=== PATIENT | male | born 1935 | race African-American/Black ===

== ENCOUNTER 2018-03-17 18:12 | Inpatient (IN) ==
[2018-04-17] MEDS ORDERED: Potassium Phosphate 500 MG Soluble Tablet PO PRN ×2 (00:01)
[2018-04-17] MEDS ORDERED: Dextrose 50% in Water 50 ML Vial IV.PUSH PRN (00:01)
[2018-04-17] MEDS ORDERED: Acetaminophen 325 MG Tablet PO PRN (00:01)
[2018-04-17] MEDS ORDERED: Magnesium Oxide 400 MG Tablet PO PRN (00:01)
[2018-04-17] MEDS ORDERED: Potassium Chlor 20 mEq Premix 20 MEQ/100 ML PIGGYBACK IV.SIG PRN ×2 (00:01)
[2018-04-17] MEDS ORDERED: Potassium Phosphate Inj 30 MMOL in Sodium Chlor 0.9% Inj 250 ML IV.SIG PRN (00:01)
[2018-04-17] MEDS ORDERED: Naloxone Inj 0.4 MG/ML Vial IV.PUSH PRN (00:01)
[2018-04-17] MEDS ORDERED: Atropine Inj 1 MG/10 ML Syringe IV.PUSH PRN (00:01)
[2018-04-17] MEDS ORDERED: Morphine Sulfate Inj 2 MG/ML Vial IV.PUSH PRN (00:01)
[2018-04-17] MEDS ORDERED: Bisacodyl 10 MG Supp RECTAL PRN (00:01)
[2018-04-17] MEDS ORDERED: Magnesium Sulfate Inj 2 GM in Sodium Chlor 0.9% Inj 96 ML IV.SIG PRN (00:01)
[2018-04-17] MEDS ORDERED: Magnesium Sulfate Inj 4 GM in Sodium Chlor 0.9% Inj 92 ML IV.SIG PRN (00:01)
[2018-04-17] MEDS ORDERED: Potassium Chloride 25 MEQ Effervescent Tablet PO PRN (00:01)
[2018-04-17] MEDS ORDERED: Potassium Chlor 40 mEq Premix 40 MEQ/100 ML PIGGYBACK IV.SIG PRN ×2 (00:01)
[2018-04-17] MEDS ORDERED: Haloperidol Inj 5 MG/ML Ampul IV.PUSH PRN (00:01)
[2018-04-17] MEDS ORDERED: Sodium Phosphate Inj 30 MMOL in Sodium Chlor 0.9% Inj 250 ML IV.SIG PRN (00:01)
[2018-04-17] MEDS ORDERED: Glycopyrrolate 0.2 MG/ML Vial IV.PUSH SCH (06:00)
[2018-04-17] MEDS: Insulin NovoLOG Aspart Correctional Sugar Inj SQ SCH ×3 (06:41→17:58)
[2018-04-17] MEDS: Artificial Tears Opth Drops 15 ML Bottle EACH EYE SCH ×2 (06:47→13:28)
[2018-04-17] MEDS: Folic Acid 1 MG Tablet PO SCH (10:11)
[2018-04-17] MEDS: Insulin Detemir Inj 1,000 UNIT/10 ML Vial SQ SCH ×2 (10:12→22:01)
[2018-04-17] MEDS: Polyethylene Glycol 3350 17 GM Packet NG/OG SCH ×2 (10:13→20:50)
[2018-04-17] MEDS: Senna/Docusate Sodium 8.6/50 MG Tablet PO SCH ×2 (10:15→20:57)
[2018-04-17] MEDS: Chlorhexidine Gluconate 0.12% Liq 15 ML UDC SWISH-SPIT SCH ×2 (10:16→20:55)
[2018-04-17] MEDS: Heparin - SQ 10,000 UNITS/ML Vial SQ SCH ×3 (13:22→22:04)
--- NOTE | 2018-04-17 13:44 | P.PNCC ---
Subjective Subjective Remarks/Hospital Course: Remarks/Hospital Course 82-year-old male was reportedly found down on the side of the road with initial GCS 7. Per chart review he usually takes a walk every morning. He was brought to the emergency room as a trauma alert. No seizure activity reported. He was reportedly mumbling and difficult to understand on initial evaluation in the emergency room. He was noted to have no voluntary movement in the lower extremities. Initial systolic blood pressure in the 90-100 range. The patient presents with quadriplegia, absence motor function below C6 level. 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 The patient was taken urgently to the operating room for surgical decompression cervical cord and fusion by Dr. Hood. He has returned to SICU postprocedure sedated and intubated 03/19: Afebrile. Positive gag and cough with positive corneal reflex. NG tube not in place secondary to edema?. Currently on phenylephrine drip to maintain mean arterial pressure greater than 85. Change to norepinephrine due to cervical spinal cord injury. 03/20: Currently on norepinephrine drip at 2 mcg/min to maintain mean arterial pressure greater than 85. Sedated on propofol drip at 30 mg/kg/min. Tolerating tube feeding. Will get CT brain today due to right pupil larger than left but this was similar to yesterday. No bowel movement. 03/21: Placed on Tiarra hugger yesterday secondary to hypothermia. Currently normothermic. Tolerating tube feeds. Will initiate CPAP trials today 2 hours. Nods head and follows simple commands with upper extremities. Weak cough. Withdraws bilateral lower extremities. 03/22: failing cpap trials. remains on low-dose norepinephrine to maintain adequate cervical spinal perfusion pressure. 03/23: Afebrile. Low tidal volumes on PSV trials. Tolerating tube feeding by 1.5 at goal rate recommended by nutrition 60 cc an hour. Positive BM. 03/24: still failing PSV trials with low tidal volume. plan for trach tomorrow ( POD 7). continues on low-dose norepinephrine to maintain adequate spinal perfusion. 03/25: secretions are still an issue: today they appear purulent and much more copious than yesterday. also now spiking fevers. wbc increased significantly. high concern for infection, pulmonary source. plan for trach today. 03/26: s/p trach yesterday. both sputum and urine growing GNR. wbc still uptrending. 03/27: urine growing proteus and klebsiella. sputum still awaiting speciation. t- piece trials starting today. needs aggressive mobilization. 03/28: Afebrile currently. Coarse crackles are appreciated bilateral with a stable appearing chest x-ray. Off norepinephrine drip. Nods head appropriately to questions. Moving bilateral upper extremities.. Denies chest pain currently. 03/29: Afebrile. Coarse rhonchorous breath sounds bilaterally. Off all vasopressors. I did not take the course. Decreased tidal volumes noted current ventilator mode. Will recheck sputum today. 03/30: Continue to promote SBTs but volumes remain low. 03/31: Today he is tolerating 12/5 spontaneous breathing trials. Remains alert. 04/01: Remains ventilator dependent. Glucose intolerance will require twice daily Levemir dosing. Convert tube feedings to Glucerna. 04/02: Remains ventilator dependent and requiring elevated pressure support. Glucose intolerance persists will increase Levemir again and continue with Glucerna. 04/03: Remains ventilator dependent and not tolerating spontaneous breathing trials. Better control of hyperglycemia now with increased Levemir dosing twice daily. Will require 3-4 weeks for ventilator weaning. [facility] 04/04: episode of bradycardia yesterday associated with hypoxia: appeared to be junctional with rate of 30s. this morning, had additional episode of junctional bradycardia, rate in the 30s with associated hypotension, responding to atropine. MRI brain and c-spine ordered. afebrile. sputum growing citrobacter. 04/05: MRI c-spine demonstrates new increased cord edema at C5/6. some concern over increased signal within the posterior disk at C4/5 and c5/6 which could be concerning for discitis, or post-op changes. Also ligamentum flavum hypertrophy at that level causing significant canal stenosis. Almost certainly the cord edema is causing the neurogenic shock requiring intermittent atropine. Have discussed with neurosurgery, and awaiting final plan for operative or non- operative recommendations. Certainly additional cervical spine operations in this 82year old patient with chronic respiratory failure would be very high risk for poor outcomes. 04/06: additional episode of bradycardia requiring atropine today. also, more hypoxemia requiring suction lavage. afebrile. wbc normal. failing cpap trials: very frail, deconditioned. plan for posterior decompression early next week, then needs LTAC level care. 04/07: Remains on mechanical ventilation. 04/08: Remains on mechanical ventilation via tracheostomy. Daily CPAP trials. 04/09: Remains on mechanical ventilation via tracheostomy. Daily CPAP trials ongoing. 04/10: Afebrile. Continues to have copious thick secretions suctioned from tracheostomy site. Tolerating tube feeding at goal. Positive BM. Arousable and follows commands on the ventilator with upper extremities 04/11: Resting comfortably in bed in no acute distress. Switch to PC/AC ventilation due to inconsistent/low tidal volumes on PRVC/AC. Neurological exam unchanged. Tube feeds at goal. No bowel movement yesterday. Subjective 04/12: Opens eyes follows commands on upper extremity grossly no finding movements of the hands. Bilateral wheezing heard. Chest x-ray shows left lower lobe consolidation. Copious secretions. Check sputum culture repeat, start inhaled budesonide and give 1 dose of IV Solu-Medrol 50 mg 04/13: Somnolent but following some commands with UE, Sputum cx with GNR. Will attempt CPAP today. OR tomorrow, 04/14/18 for posterior cervical decompression. 04/14: Patient more awake today for his commands with upper extremities. Sputum culture growing Citrobacter and GNR. Plan for OR today for posterior cervical decompression. Became bradycardic hypoxic on CPAP trials yesterday 04/15: Went to OR 04/14/18 for total C5 laminectomy and partial C4 and C6 laminectomies. All for sedation but slightly more lethargic today. Not following commands on upper extremities but opens eyes and tracks 04/16: Patient is breathing more comfortably today tolerating CPAP. Follows commands still on the upper extremities. No episodes of bradycardia reported. KUB shows questionable ileus. Tolerating tube feeds, having bowel movements. 04/17 patient is awake feeling segments in the upper extremities. Abdomen is distended, but patient is tolerating tube feeds and having bowel movements. Will repeat KUB today Objective Vital Signs / I&O: Vital Signs 04/17/18 04:22 04/17/18 04:26 04/17/18 09:09 Pulse Rate 69 72 Respiratory Rate 16 17 25 H Pulse Oximetry 100 100 04/17/18 11:48 Pulse Rate 72 Respiratory Rate 25 H Pulse Oximetry Intake & Output 0604/17/18 04/17/18 18:59 06:59 18:59 Intake Total 1016 / 1016 Output Total 1000 / 1000 Balance Intake: Tube Feeding 556 / 556 Water Bolus Amount 460 / 460 Output: Urine 1000 / 1000 Other: Date of Last Bowel Movement 04/16/18 04/17/18 Result Diagrams: 04/16/18 04:40 04/17/18 05:00 Other Results: Objective Remarks GENERAL: 82 yo AAM male, lying in bed eyes open, no distress SKIN: Warm and dry. No rash and well-perfused HEAD: Normocephalic. EYES: No scleral icterus. No injection or drainage. Pupils right 3 mm, left 2 mm. Reactive. NECK: Supple, tracheostomy with no signs of bleeding. Remains of cervical collar. CARDIOVASCULAR: RRR. S1, S2. No S4. No JVD. RESPIRATORY: Breath sounds equal bilaterally. Bilateral wheezes and coarse rhonchi. GASTROINTESTINAL: Abdomen soft, non-tender, nondistended. Hypoactive bowel sounds MUSCULOSKELETAL: No significant peripheral edema, warm and well-perfused limbs. Sacral DU NEURO EXAM: Eyes are spontaneously open. following commands in UE. spontaneously move bilateral upper extremities, has gross movements, no fine movements of the hand. Strength 3/5 upper extremities with right greater than left. strength 0/5 in lower extremities. Objective Remarks: GENERAL: 82 yo AAM male, lying in bed eyes open, no distress SKIN: Warm and dry. No rash and well-perfused HEAD: Normocephalic. EYES: No scleral icterus. No injection or drainage. Pupils right 3 mm, left 2 mm. Reactive. NECK: Supple, tracheostomy with no signs of bleeding. Remains of cervical collar. CARDIOVASCULAR: RRR. S1, S2. No S4. No JVD. RESPIRATORY: Breath sounds equal bilaterally. Bilateral wheezes and coarse rhonchi. GASTROINTESTINAL: Abdomen soft, non-tender, nondistended. Hypoactive bowel sounds MUSCULOSKELETAL: No significant peripheral edema, warm and well-perfused limbs. Sacral DU NEURO EXAM: Pupils are equal eyes are spontaneously open. following commands in UE. spontaneously move bilateral upper extremities, has gross movements, no fine movements of the hand. Strength 3/5 upper extremities with right greater than left. strength 0/5 in lower extremities. Upward Babinski. Assessment and Plan - Assessment and Plan Plan: A/P Assessment and Plan Neuro/Psych: Quadriplegia, C5-C7 complete Cervical spinal stenosis Contusion of cervical cord Dementia disorder NOS EtOH s/p C4-5 and C5-6 anterior cervical discectomy, interbody fusion, allograft bone , partial C5 corpectomy, C4-6 anterior instrumentation 03/18/18 s/p total C5 laminectomy and partial C4 and C6 laminectomies. 04/14/18 Neurosurgery/Dr. Hood. Acetaminophen 650 mg by tube every 6 hours as needed fever Morphine sulfate as needed for pain management Continue baclofen 10 mg every 8 hours Donepezil 5 mg p.o. daily for dementia Vitamin bag daily 3 days thiamine, folate has been completed. thiamine 100 mg daily multivitamin daily and folic acid 1 mg daily by tube Monitor for DTs. Haloperidol 2.5 mg every 4 hours as needed agitation MRI brain 04/04 revealed mild microvascular ischemic type changes PT/OT CV: Essential hypertension Episodic bradycardia Atropine PRN use prior to suctioning Became bradycardic 04/13 after becoming hypoxemic on CPAP. No bradycardia reported last 24-48 hours Holding amlodipine 10 mg daily lisinopril 2.5 mg p.o. daily while maintain blood pressure goals as above and resume as clinically indicated Resp: Acute hypoxic and hypercarbic respiratory failure- now chronic. PC/AC, Daily SBT, with TP as tolerated. Need long-term vent weaning Has been treated with larger tidal volumes- 10-12cc/kilogram ideal body weight 67 kg. Ventilator bundle Specialist respiratory management with cervical spine injury with decreased lung expansion, impaired cough due to weakness of expiratory muscles, impairment of elastic recoil of diaphragms, increased secretion production due to unopposed parasympathetic stimulation stimulation and decreased surfactant production. Albuterol/ipratropium aerosols every 6 hours with albuterol aerosols every 2 hours as needed dyspnea Continue trials for spontaneous breathing- failing mostly, mostly for tachypnea and secretion management. Status post percutaneous tracheostomy 03/[address] Grey Sputum culture Citrobacter, Klebsiella, Continue budesonide GI: Hypoalbuminemia Hypernatremia Tube feeds goal 60 cc an hour per nutrition's recommendation Probable mild ileus on KUB, but clinically patient has no vomiting, tolerating tube feeds, having bowel movements Reglan 5 mg IV every 8 hours. Lansoprazole for GI prophylaxis Docusate sodium/senna 1 tablet twice daily for bowel regimen. Polyethylene glycol 17 g twice daily, lactulose 30 cc twice daily s/p PEG tube 04/05. Dr. Tom Repeat KUB today Endo: Sliding scale insulin with Accu-Cheks to maintain euglycemia/low regimen NovoLog every 6 hours Insulin detemir 16 units twice daily. No sliding scale insulin past 24 hours Renal: Mild rhabdomyolysis -resolved Monitor CPK/LFTs are downward straight cath i/o q6h for retention. Heme: Leukocytosis Normocytic anemia Monitor CBC daily. Follow trend ID: Klebsiella UTI Proteus UTI Haemophilus influenza/Citrobacter Koseri sputum HCAP with Citrobacter/Klebsiella Continue Rocephin 04/12: Citrobacter/Klebsiella in sputum culture 04/08 -sputum -Klebsiella pneumonia/Citrobacter koseri 03/29 -sputum -Klebsiella pneumonia/Citrobacter 03/25 -urine -Klebsiella pneumonia/Proteus mirabilis 03/25 -sputum -Citrobacter koseri and Haemophilus influenza positive 03/25 -blood cultures 2 -no growth MSK: Sacrum DU PT evaluate and treat Wound care c/s FEN: Replace electrolytes per ICU electrolyte protocol Access - piv Prophylaxis -GI -lansoprazole -DVT -SCD/pharmacological prophylaxis will defer to Dr. Hood. Readdress after posterior decompression Level 3 Transfer to LTAC after cleared by neurosurgery
--- NOTE | 2018-04-17 14:18 | XR ---
EXAM DATE: 04/17/2018 2:14 PM EDT AGE/SEX: 82 years / Male INDICATIONS: Distention, concern for ileus. CLINICAL DATA: This is the patient's subsequent encounter. Patient reports that signs and symptoms h ave been present for 3 days and indicates a pain score of Nonresponsive. MEDICAL/SURGICAL HISTORY: Non-responsive. Non-responsive. COMPARISON: [facility] [place] ABDOMEN KUB ONLY, 04/15/2018. . FINDINGS: Gastrostomy is present. There is mild diffuse gaseous distention of bowel similar to prior. CONCLUSION: Nonspecific gaseous distention of bowel Electronically signed by: Toni Gomez MD 04/17/2018 2:17 PM EDT
--- NOTE | 2018-04-17 14:47 | P.PNNS ---
Subjective Interval history: No new problems reported. Commercial Sheet Metal Foreman notes reviewed. Physical Exam Vital signs: Vital Signs 04/17/18 04:22 04/17/18 04:26 04/17/18 09:09 Pulse Rate 69 72 Respiratory Rate 16 17 25 H Pulse Oximetry 100 100 04/17/18 11:48 Pulse Rate 72 Respiratory Rate 25 H Pulse Oximetry Intake & Output 04/16/18 04/17/18 04/17/18 18:59 06:59 18:59 Intake Total 1016 / 1016 Output Total 1000 / 1000 Balance Intake: Tube Feeding 556 / 556 Water Bolus Amount 460 / 460 Output: Urine 1000 / 1000 Other: Date of Last Bowel Movement 04/16/18 04/17/18 Narrative: GENERAL: Remains mildly lethargic, briefly opens eyes to voice. No interaction. Trached and on CPAP/PSV. No apparent distress. No sedation. HEENT: Normocephalic, atraumatic. NECK: Tracheostomy midline. No JVD. Anterior neck surgical incision well- approximated w/o any drainage, erythema or streaking noted. The posterior neck surgical incision is dry & intact. TTP (facial grimacing) along the midline cervical spine & surgical incision. MUSCULOSKELETAL: No response w/any extremity to any stimulation. BUE w/extreme contractures, unable to due passive ROM. No evident clubbing or deformity. NEUROLOGICAL: Mildly lethargic, briefly opens eyes to voice. Does not interact. Nonverbal, trached on vent. Did not follow any commands. No response with any extremity to local or noxious stimulation. - Urinary Catheter Management Condom Cath placed during this visit: no Assessment and Plan - Plan Impression: 1. Status post 03/18/2018: C4-5 and C5-6 ACDF with partial C5 corpectomy 04/14/2018: T5 total and partial C4 and C6 laminectomies Persistent quadriplegia-unchanged postoperative. 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 Plan: Primary & critical care management per Commercial Sheet Metal Foreman. Neuro checks. Stat CT for any decline in mental status. Continue therapy Respiratory treatments Cervical collar He will need inpatient rehabilitation
[2018-04-18] MEDS: Artificial Tears Opth Drops 15 ML Bottle EACH EYE SCH ×4 (00:36→21:28)
[2018-04-18] MEDS: Insulin NovoLOG Aspart Correctional Sugar Inj SQ SCH ×3 (00:37→21:28)
[2018-04-18 05:02] LABS: Hematocrit 30.4 % (39.0-51.0); Hemoglobin 9.5 gm/dL (13.0-17.0); Mean Corpuscular HGB Conc 31.3 % (32.0-36.0); Mean Corpuscular Hemoglobin 27.1 pg (27.0-34.0); Mean Corpuscular Volume 86.4 fL (80.0-100.0); Platelet Count 278 th/mm3 (150-450); Red Blood Count 3.52 mil/mm3 (4.50-5.90); White Blood Count 10.2 th/mm3 (4.0-11.0)
[2018-04-18 05:20] LABS: Alanine Aminotransferase 103 U/L (12-78); Albumin 1.5 g/dL (3.4-5.0); Anion Gap 11 meq/L (5-15); Aspartate Aminotransferase 112 U/L (15-37); Blood Urea Nitrogen 19 mg/dL (7-18); Calcium 8.2 mg/dL (8.5-10.1); Carbon Dioxide 23.5 meq/L (21.0-32.0); Chloride 111 meq/L (98-107); Glomerular Filtration Rate Greater Than 89 mL/min (>89); Glucose,Random 79 mg/dL (74-106); Potassium 3.8 meq/L (3.5-5.1); Sodium 145 meq/L (136-145)
[2018-04-18 05:22] LABS: Alkaline Phosphatase 102 U/L (45-117); Total Protein 7.1 g/dL (6.4-8.2)
[2018-04-18] MEDS: Heparin - SQ 10,000 UNITS/ML Vial SQ SCH ×3 (06:36→21:24)
--- NOTE | 2018-04-18 09:21 | P.PNNS ---
Subjective Interval history: The patient has undergone anterior and posterior cervical spinal cord decompression. Remains with tracheostomy and PEG tube in place Cervical collar in place Physical Exam Vital signs: Vital Signs 04/17/18 09:09 04/17/18 11:48 04/17/18 16:00 Temperature 98.6 F Pulse Rate 72 72 69 Respiratory Rate 25 H 25 H 26 H Blood Pressure 115/60 Pulse Oximetry 100 100 04/17/18 16:35 04/17/18 20:00 04/17/18 20:09 Temperature Pulse Rate 69 57 L 67 Respiratory Rate 29 H 14 14 Blood Pressure Pulse Oximetry 100 100 100 04/17/18 22:00 04/18/18 00:16 04/18/18 00:20 Temperature Pulse Rate 57 L 76 Respiratory Rate 16 16 Blood Pressure Pulse Oximetry 100 04/18/18 03:49 04/18/18 04:00 04/18/18 06:00 Temperature Pulse Rate 66 71 69 Respiratory Rate 14 Blood Pressure Pulse Oximetry 100 04/18/18 08:02 04/18/18 08:07 Temperature Pulse Rate 65 Respiratory Rate 16 21 Blood Pressure Pulse Oximetry 100 Intake & Output 04/17/18 04/18/18 04/18/18 18:59 06:59 18:59 Intake Total 1010 / 1010 1100 / 1100 Output Total 900 / 900 450 / 450 Balance 110 / 110 650 / 650 Intake: Tube Feeding 610 / 610 700 / 700 Water Bolus Amount 400 / 400 400 / 400 Output: Urine 900 / 900 400 / 400 Stool 50 / 50 Other: Date of Last Bowel Movement 04/17/18 04/18/18 # Bowel Movements 3 Narrative: Tracheostomy and PEG tube in place. The patient has stable sacral decubitus ulcer with dressing in place. The anterior and posterior neck incisions are dry and intact. [place] still in place at the posterior neck incision. Cervical collar in place Respirations are clear Abdomen soft nontender Moderate lower extremity edema He is awake and alert He nods his head in response to questions Indicates sensation in the C6 and C7 distributions of the upper extremities No lower extremity sensation to light touch Strength is 4-5/5 bilateral deltoid and biceps with trace bilateral triceps and left wrist extensors. Absent hand intrinsics and flexor digitorum - Urinary Catheter Management Condom Cath placed during this visit: no Assessment and Plan - Plan Impression: 1. Status post 03/18/2018: C4-5 and C5-6 ACDF with partial C5 corpectomy 04/14/2018: T5 total and partial C4 and C6 laminectomies Persistent quadriplegia-unchanged postoperative. 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 2. Sacral decubitus ulcer Plan: Wound care nursing for decubitus ulcer management Discussed with brewery pumper. Patient stable for inpatient rehabilitation Primary & critical care management per Commodity Broker. Neuro checks. Stat CT for any decline in mental status. Continue therapy Respiratory treatments Cervical collar He will need inpatient rehabilitation
[2018-04-18] MEDS: Folic Acid 1 MG Tablet PO SCH (09:33)
[2018-04-18] MEDS: Insulin Detemir Inj 1,000 UNIT/10 ML Vial SQ SCH ×2 (09:34→21:26)
[2018-04-18] MEDS: Polyethylene Glycol 3350 17 GM Packet NG/OG SCH ×2 (09:34→21:28)
[2018-04-18] MEDS: Senna/Docusate Sodium 8.6/50 MG Tablet PO SCH ×2 (09:35→21:26)
[2018-04-18] MEDS: Chlorhexidine Gluconate 0.12% Liq 15 ML UDC SWISH-SPIT SCH ×2 (09:36→21:26)
--- NOTE | 2018-04-18 12:15 | P.PNCC ---
Subjective Subjective Remarks/Hospital Course: Remarks/Hospital Course 82-year-old male was reportedly found down on the side of the road with initial GCS 7. Per chart review he usually takes a walk every morning. He was brought to the emergency room as a trauma alert. No seizure activity reported. He was reportedly mumbling and difficult to understand on initial evaluation in the emergency room. He was noted to have no voluntary movement in the lower extremities. Initial systolic blood pressure in the 90-100 range. The patient presents with quadriplegia, absence motor function below C6 level. 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 The patient was taken urgently to the operating room for surgical decompression cervical cord and fusion by Dr. Hood. He has returned to SICU postprocedure sedated and intubated 03/19: Afebrile. Positive gag and cough with positive corneal reflex. NG tube not in place secondary to edema?. Currently on phenylephrine drip to maintain mean arterial pressure greater than 85. Change to norepinephrine due to cervical spinal cord injury. 03/20: Currently on norepinephrine drip at 2 mcg/min to maintain mean arterial pressure greater than 85. Sedated on propofol drip at 30 mg/kg/min. Tolerating tube feeding. Will get CT brain today due to right pupil larger than left but this was similar to yesterday. No bowel movement. 03/21: Placed on Tiarra hugger yesterday secondary to hypothermia. Currently normothermic. Tolerating tube feeds. Will initiate CPAP trials today 2 hours. Nods head and follows simple commands with upper extremities. Weak cough. Withdraws bilateral lower extremities. 03/22: failing cpap trials. remains on low-dose norepinephrine to maintain adequate cervical spinal perfusion pressure. 03/23: Afebrile. Low tidal volumes on PSV trials. Tolerating tube feeding by 1.5 at goal rate recommended by nutrition 60 cc an hour. Positive BM. 03/24: still failing PSV trials with low tidal volume. plan for trach tomorrow ( POD 7). continues on low-dose norepinephrine to maintain adequate spinal perfusion. 03/25: secretions are still an issue: today they appear purulent and much more copious than yesterday. also now spiking fevers. wbc increased significantly. high concern for infection, pulmonary source. plan for trach today. 03/26: s/p trach yesterday. both sputum and urine growing GNR. wbc still uptrending. 03/27: urine growing proteus and klebsiella. sputum still awaiting speciation. t- piece trials starting today. needs aggressive mobilization. 03/28: Afebrile currently. Coarse crackles are appreciated bilateral with a stable appearing chest x-ray. Off norepinephrine drip. Nods head appropriately to questions. Moving bilateral upper extremities.. Denies chest pain currently. 03/29: Afebrile. Coarse rhonchorous breath sounds bilaterally. Off all vasopressors. I did not take the course. Decreased tidal volumes noted current ventilator mode. Will recheck sputum today. 03/30: Continue to promote SBTs but volumes remain low. 03/31: Today he is tolerating 12/5 spontaneous breathing trials. Remains alert. 04/01: Remains ventilator dependent. Glucose intolerance will require twice daily Levemir dosing. Convert tube feedings to Glucerna. 04/02: Remains ventilator dependent and requiring elevated pressure support. Glucose intolerance persists will increase Levemir again and continue with Glucerna. 04/03: Remains ventilator dependent and not tolerating spontaneous breathing trials. Better control of hyperglycemia now with increased Levemir dosing twice daily. Will require 3-4 weeks for ventilator weaning. [facility] 04/04: episode of bradycardia yesterday associated with hypoxia: appeared to be junctional with rate of 30s. this morning, had additional episode of junctional bradycardia, rate in the 30s with associated hypotension, responding to atropine. MRI brain and c-spine ordered. afebrile. sputum growing citrobacter. 04/05: MRI c-spine demonstrates new increased cord edema at C5/6. some concern over increased signal within the posterior disk at C4/5 and c5/6 which could be concerning for discitis, or post-op changes. Also ligamentum flavum hypertrophy at that level causing significant canal stenosis. Almost certainly the cord edema is causing the neurogenic shock requiring intermittent atropine. Have discussed with neurosurgery, and awaiting final plan for operative or non- operative recommendations. Certainly additional cervical spine operations in this 82year old patient with chronic respiratory failure would be very high risk for poor outcomes. 04/06: additional episode of bradycardia requiring atropine today. also, more hypoxemia requiring suction lavage. afebrile. wbc normal. failing cpap trials: very frail, deconditioned. plan for posterior decompression early next week, then needs LTAC level care. 04/07: Remains on mechanical ventilation. 04/08: Remains on mechanical ventilation via tracheostomy. Daily CPAP trials. 04/09: Remains on mechanical ventilation via tracheostomy. Daily CPAP trials ongoing. 04/10: Afebrile. Continues to have copious thick secretions suctioned from tracheostomy site. Tolerating tube feeding at goal. Positive BM. Arousable and follows commands on the ventilator with upper extremities 04/11: Resting comfortably in bed in no acute distress. Switch to PC/AC ventilation due to inconsistent/low tidal volumes on PRVC/AC. Neurological exam unchanged. Tube feeds at goal. No bowel movement yesterday. Subjective 04/12: Opens eyes follows commands on upper extremity grossly no finding movements of the hands. Bilateral wheezing heard. Chest x-ray shows left lower lobe consolidation. Copious secretions. Check sputum culture repeat, start inhaled budesonide and give 1 dose of IV Solu-Medrol 50 mg 04/13: Somnolent but following some commands with UE, Sputum cx with GNR. Will attempt CPAP today. OR tomorrow, 04/14/18 for posterior cervical decompression. 04/14: Patient more awake today for his commands with upper extremities. Sputum culture growing Citrobacter and GNR. Plan for OR today for posterior cervical decompression. Became bradycardic hypoxic on CPAP trials yesterday 04/15: Went to OR 04/14/18 for total C5 laminectomy and partial C4 and C6 laminectomies. All for sedation but slightly more lethargic today. Not following commands on upper extremities but opens eyes and tracks 04/16: Patient is breathing more comfortably today tolerating CPAP. Follows commands still on the upper extremities. No episodes of bradycardia reported. KUB shows questionable ileus. Tolerating tube feeds, having bowel movements. 04/17: Patient is awake moving upper extremities. Abdomen is distended, but patient is tolerating tube feeds and having bowel movements. Will repeat KUB today 04/18: Neuro exam unchanged tolerating tube feeds having bowel movements. KUB yesterday shows nonspecific gas bowel pattern Objective Vital Signs / I&O: Vital Signs 04/17/18 16:00 04/17/18 16:35 04/17/18 20:00 Temperature 98.6 F Pulse Rate 69 69 57 L Respiratory Rate 26 H 29 H 14 Blood Pressure 115/60 Pulse Oximetry 100 100 100 04/17/18 20:09 04/17/18 22:00 04/18/18 00:16 Temperature Pulse Rate 67 57 L 76 Respiratory Rate 14 16 Blood Pressure Pulse Oximetry 100 04/18/18 00:20 04/18/18 03:49 04/18/18 04:00 Temperature Pulse Rate 66 71 Respiratory Rate 16 14 Blood Pressure Pulse Oximetry 100 100 04/18/18 06:00 04/18/18 08:00 04/18/18 08:02 Temperature 99 F Pulse Rate 69 65 Respiratory Rate 14 16 Blood Pressure 141/94 H Pulse Oximetry 100 100 04/18/18 08:07 Temperature Pulse Rate 65 Respiratory Rate 21 Blood Pressure Pulse Oximetry Intake & Output 04/17/18 04/18/18 04/18/18 18:59 06:59 18:59 Intake Total 1010 / 1010 1100 / 1100 Output Total 900 / 900 450 / 450 Balance 110 / 110 650 / 650 Intake: Tube Feeding 610 / 610 700 / 700 Water Bolus Amount 400 / 400 400 / 400 Output: Urine 900 / 900 400 / 400 Stool 50 / 50 Other: Date of Last Bowel Movement 04/17/18 04/18/18 04/18/18 # Bowel Movements 3 Result Diagrams: 04/18/18 03:39 04/18/18 03:39 Objective Remarks: GENERAL: 82 yo AAM male, lying in bed eyes open, no distress SKIN: Warm and dry. No rash and well-perfused HEAD: Normocephalic. EYES: No scleral icterus. No injection or drainage. Pupils right 3 mm, left 2 mm. Reactive. NECK: Supple, tracheostomy with no signs of bleeding. Remains of cervical collar. CARDIOVASCULAR: RRR. S1, S2. No S4. No JVD. RESPIRATORY: Breath sounds equal bilaterally. Bilateral wheezes and coarse rhonchi. GASTROINTESTINAL: Abdomen soft, non-tender, nondistended. Hypoactive bowel sounds MUSCULOSKELETAL: No significant peripheral edema, warm and well-perfused limbs. Sacral DU NEURO EXAM: Pupils are equal, eyes are spontaneously open. following commands in UE. Spontaneously move bilateral upper extremities, has gross movements, no fine movements of the hand. Strength 3/5 upper extremities with right greater than left. strength 0/5 in lower extremities. Upward Babinski. Assessment and Plan - Assessment and Plan Plan: A/P Assessment and Plan Neuro/Psych: Quadriplegia, C5-C7 complete Cervical spinal stenosis Contusion of cervical cord Dementia disorder NOS EtOH s/p C4-5 and C5-6 anterior cervical discectomy, interbody fusion, allograft bone , partial C5 corpectomy, C4-6 anterior instrumentation 03/18/18 s/p total C5 laminectomy and partial C4 and C6 laminectomies. 04/14/18 Neurosurgery/Dr. Hood. Acetaminophen 650 mg by tube every 6 hours as needed fever Morphine sulfate as needed for pain management Continue baclofen 10 mg every 8 hours Donepezil 5 mg p.o. daily for dementia Vitamin bag daily 3 days thiamine, folate has been completed. thiamine 100 mg daily multivitamin daily and folic acid 1 mg daily by tube Monitor for DTs. Haloperidol 2.5 mg every 4 hours as needed agitation MRI brain 04/04 revealed mild microvascular ischemic type changes PT/OT CV: Essential hypertension Episodic bradycardia Atropine PRN use prior to suctioning and for bradycardia Became bradycardic 04/13 after becoming hypoxemic on CPAP. No bradycardia reported last 24-48 hours Holding amlodipine 10 mg daily lisinopril 2.5 mg p.o. daily while maintain blood pressure goals as above and resume as clinically indicated Resp: Acute hypoxic and hypercarbic respiratory failure- now chronic. PC/AC, Daily SBT, with TP as tolerated, attempt for 1 hour today. Need long- term vent weaning Has been treated with larger tidal volumes- 10-12cc/kilogram ideal body weight 67 kg. Ventilator bundle Specialist respiratory management with cervical spine injury with decreased lung expansion, impaired cough due to weakness of expiratory muscles, impairment of elastic recoil of diaphragms, increased secretion production due to unopposed parasympathetic stimulation stimulation and decreased surfactant production. Albuterol/ipratropium aerosols every 6 hours with albuterol aerosols every 2 hours as needed dyspnea Status post percutaneous tracheostomy 03/[address] Grey Sputum culture Citrobacter, Klebsiella, Continue budesonide GI: Hypoalbuminemia Hypernatremia Tube feeds goal 60 cc an hour per nutrition's recommendation Probable mild ileus on KUB, but clinically patient has no vomiting, tolerating tube feeds, having bowel movements Reglan 5 mg IV every 8 hours. Lansoprazole for GI prophylaxis Docusate sodium/senna 1 tablet twice daily for bowel regimen. Polyethylene glycol 17 g twice daily, lactulose 30 cc twice daily s/p PEG tube 04/05. Dr. Tom Repeat KUB today Endo: Sliding scale insulin with Accu-Cheks to maintain euglycemia/low regimen NovoLog every 6 hours Insulin detemir 16 units twice daily. No sliding scale insulin past 24 hours Renal: Mild rhabdomyolysis -resolved Monitor CPK/LFTs are downward straight cath i/o q6h for retention. Heme: Leukocytosis Normocytic anemia Monitor CBC daily. Follow trend ID: Klebsiella UTI Proteus UTI Haemophilus influenza/Citrobacter Koseri sputum HCAP with Citrobacter/Klebsiella Continue Rocephin 04/12: Citrobacter/Klebsiella in sputum culture 04/08 -sputum -Klebsiella pneumonia/Citrobacter koseri 03/29 -sputum -Klebsiella pneumonia/Citrobacter 03/25 -urine -Klebsiella pneumonia/Proteus mirabilis 03/25 -sputum -Citrobacter koseri and Haemophilus influenza positive 03/25 -blood cultures 2 -no growth MSK: Sacrum DU PT evaluate and treat Wound care c/s FEN: Replace electrolytes per ICU electrolyte protocol Access - piv Prophylaxis -GI -lansoprazole -DVT -SCD/pharmacological prophylaxis will defer to Dr. Hood. Readdress after posterior decompression Level 2 Transfer to LTAC when bed available
--- NOTE | 2018-04-18 19:05 | P.PNWCN ---
Wound/Pressure Injury - Wound Coccyx Wound Staging: Stage II Wound Type: Pressure Injury (DTI open to partial thickness wound) Is This a Chronic Wound: Yes Requested from Provider a Wound Care Consult: No Length: 6.5 Width: 6.8 Depth: 0.1 Wound Bed Appearance: Osborn, Red Wound Bed Appearance: Wound base 75% moist pink non granular tissue 20% moist red non granular 5 % white moist tissue Surrounding Tissue Temperature: Cool Drainage Description: Serosanguinous Drainage Amount: Scant Drainage Odor: No Odor Dressing Status: Changed Cleansing Solution: Saline Primary Dressing: Silver Dressing Cover Dressing: Absorbant Pad Wound Dressing Change Date: 04/18/18
[2018-04-19] MEDS: Insulin NovoLOG Aspart Correctional Sugar Inj SQ SCH ×4 (01:03→19:53)
[2018-04-19] MEDS: Heparin - SQ 10,000 UNITS/ML Vial SQ SCH ×3 (06:46→21:27)
[2018-04-19] MEDS: Artificial Tears Opth Drops 15 ML Bottle EACH EYE SCH ×3 (06:47→21:27)
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
--- NOTE | 2018-04-19 09:52 | P.PNNS ---
Subjective Interval history: The patient continues to be trached and is on CPAP/PSV setting on the vent. He has his eyes opened when seen. He does attempt to follow commands. Physical Exam Vital signs: Vital Signs 04/18/18 12:00 04/18/18 12:49 04/18/18 12:51 Temperature 98.5 F Pulse Rate 65 61 Respiratory Rate 14 19 16 Blood Pressure 132/72 Pulse Oximetry 100 100 04/18/18 15:58 04/18/18 16:00 04/18/18 20:00 Temperature 98.5 F 97.8 F Pulse Rate 60 56 L Respiratory Rate 15 14 14 Blood Pressure 132/68 161/97 H Pulse Oximetry 100 100 100 04/18/18 20:11 04/18/18 20:25 04/18/18 23:41 Temperature Pulse Rate 60 59 L Respiratory Rate 14 15 14 Blood Pressure Pulse Oximetry 100 04/18/18 23:44 04/19/18 00:00 04/19/18 03:43 Temperature 98.2 F Pulse Rate 62 Respiratory Rate 18 14 20 Blood Pressure 141/82 H Pulse Oximetry 100 100 100 04/19/18 04:00 04/19/18 07:38 04/19/18 07:41 Temperature 97.8 F Pulse Rate 60 66 Respiratory Rate 14 23 24 Blood Pressure 121/67 Pulse Oximetry 100 100 Intake & Output 04/18/18 04/19/18 04/19/18 18:59 06:59 18:59 Intake Total 1160 / 1160 1382 / 1382 Output Total 400 / 400 1300 / 1300 Balance 760 / 760 82 / 82 Intake: Tube Feeding 700 / 700 1322 / 1322 Tube Irrigant 60 / 60 60 / 60 Water Bolus Amount 400 / 400 Output: Urine 400 / 400 Urine Amount (Catheter) 1300 / 1300 Condom 1300 / 1300 Other: # Voids 3 Date of Last Bowel Movement 04/18/18 04/18/18 04/18/18 # Bowel Movements 2 1 Narrative: GENERAL: Awake & alert. Trached and on CPAP/PSV settings. Interacts. No apparent distress. HEENT: Normocephalic, atraumatic. NECK: In Isabella J cervical collar. Trach to midline. No evident JVD. Anterior neck surgical incision well approximated, healing w/o complication. Dressing intact to posterior neck surgical incision. MUSCULOSKELETAL: Minimal movement of BUE, contractures to both, RUE very tight, able to move LUE slightly. No response w/BLE. No evident clubbing or deformity. NEURO: Awake & alert. Nonverbal, trached. Followed simple commands. Minimal movement of BUE to command. Patient able to lift right elbow slightly off bed but unable to try to straight RUE, very contracted and practitioner unable to do passively. Patient does have some spontaneous movement of left hand along chest but not able to lift off chest, practitioner is able to straighten passively but returns to contracted condition when released. No response w/BLE to local noxious stimulation. - Urinary Catheter Management Condom Cath placed during this visit: no Assessment and Plan - Plan Impression: 1. Status post 03/18/2018: C4-5 and C5-6 ACDF with partial C5 corpectomy 04/14/2018: T5 total and partial C4 and C6 laminectomies Persistent quadriplegia-unchanged postoperative. 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 2. Sacral decubitus ulcer Patient is stable, no change in neuro exam. Plan: Wound care nursing for decubitus ulcer management Discussed with measurement specialist. Patient stable for inpatient rehabilitation Primary & critical care management per [employer] Supervisor. Neuro checks. Stat CT for any decline in mental status. Continue therapy Respiratory treatments Cervical collar He will need inpatient rehabilitation
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
[2018-04-19] MEDS: Folic Acid 1 MG Tablet PO SCH (10:39)
[2018-04-19] MEDS: Insulin Detemir Inj 1,000 UNIT/10 ML Vial SQ SCH ×2 (10:40→21:28)
[2018-04-19] MEDS: Polyethylene Glycol 3350 17 GM Packet NG/OG SCH ×2 (10:42→21:13)
[2018-04-19] MEDS: Senna/Docusate Sodium 8.6/50 MG Tablet PO SCH ×2 (10:42→21:13)
[2018-04-19] MEDS: Chlorhexidine Gluconate 0.12% Liq 15 ML UDC SWISH-SPIT SCH ×2 (10:43→21:28)
[2018-04-19] MEDS ORDERED: hydrALAZINE HCl Inj 20 MG/ML Vial IV.PUSH PRN (11:23)
[2018-04-19] MEDS ORDERED: Benzocaine 20% Oral Spray 60 ML Can OROPHARYNG PRN (12:46)
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
[2018-04-19] MEDS ORDERED: hydrALAZINE 25 MG Tablet PO PRN (18:16)
[2018-04-19] MEDS ORDERED: Metoprolol Tartrate 25 MG Tablet PO SCH (21:00)
[2018-04-20] MEDS: Insulin NovoLOG Aspart Correctional Sugar Inj SQ SCH ×4 (00:11→18:47)
[2018-04-20] MEDS: Heparin - SQ 10,000 UNITS/ML Vial SQ SCH ×3 (05:44→22:14)
[2018-04-20] MEDS: Artificial Tears Opth Drops 15 ML Bottle EACH EYE SCH ×3 (05:45→22:14)
--- NOTE | 2018-04-20 06:41 | P.PNCC ---
Subjective Subjective Remarks/Hospital Course: Remarks/Hospital Course 82-year-old male was reportedly found down on the side of the road with initial GCS 7. Per chart review he usually takes a walk every morning. He was brought to the emergency room as a trauma alert. No seizure activity reported. He was reportedly mumbling and difficult to understand on initial evaluation in the emergency room. He was noted to have no voluntary movement in the lower extremities. Initial systolic blood pressure in the 90-100 range. The patient presents with quadriplegia, absence motor function below C6 level. 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 The patient was taken urgently to the operating room for surgical decompression cervical cord and fusion by Dr. Hood. He has returned to SICU postprocedure sedated and intubated 03/19: Afebrile. Positive gag and cough with positive corneal reflex. NG tube not in place secondary to edema?. Currently on phenylephrine drip to maintain mean arterial pressure greater than 85. Change to norepinephrine due to cervical spinal cord injury. 03/20: Currently on norepinephrine drip at 2 mcg/min to maintain mean arterial pressure greater than 85. Sedated on propofol drip at 30 mg/kg/min. Tolerating tube feeding. Will get CT brain today due to right pupil larger than left but this was similar to yesterday. No bowel movement. 03/21: Placed on Tiarra hugger yesterday secondary to hypothermia. Currently normothermic. Tolerating tube feeds. Will initiate CPAP trials today 2 hours. Nods head and follows simple commands with upper extremities. Weak cough. Withdraws bilateral lower extremities. 03/22: failing cpap trials. remains on low-dose norepinephrine to maintain adequate cervical spinal perfusion pressure. 03/23: Afebrile. Low tidal volumes on PSV trials. Tolerating tube feeding by 1.5 at goal rate recommended by nutrition 60 cc an hour. Positive BM. 03/24: still failing PSV trials with low tidal volume. plan for trach tomorrow ( POD 7). continues on low-dose norepinephrine to maintain adequate spinal perfusion. 03/25: secretions are still an issue: today they appear purulent and much more copious than yesterday. also now spiking fevers. wbc increased significantly. high concern for infection, pulmonary source. plan for trach today. 03/26: s/p trach yesterday. both sputum and urine growing GNR. wbc still uptrending. 03/27: urine growing proteus and klebsiella. sputum still awaiting speciation. t- piece trials starting today. needs aggressive mobilization. 03/28: Afebrile currently. Coarse crackles are appreciated bilateral with a stable appearing chest x-ray. Off norepinephrine drip. Nods head appropriately to questions. Moving bilateral upper extremities.. Denies chest pain currently. 03/29: Afebrile. Coarse rhonchorous breath sounds bilaterally. Off all vasopressors. I did not take the course. Decreased tidal volumes noted current ventilator mode. Will recheck sputum today. 03/30: Continue to promote SBTs but volumes remain low. 03/31: Today he is tolerating 12/5 spontaneous breathing trials. Remains alert. 04/01: Remains ventilator dependent. Glucose intolerance will require twice daily Levemir dosing. Convert tube feedings to Glucerna. 04/02: Remains ventilator dependent and requiring elevated pressure support. Glucose intolerance persists will increase Levemir again and continue with Glucerna. 04/03: Remains ventilator dependent and not tolerating spontaneous breathing trials. Better control of hyperglycemia now with increased Levemir dosing twice daily. Will require 3-4 weeks for ventilator weaning. [facility] 04/04: episode of bradycardia yesterday associated with hypoxia: appeared to be junctional with rate of 30s. this morning, had additional episode of junctional bradycardia, rate in the 30s with associated hypotension, responding to atropine. MRI brain and c-spine ordered. afebrile. sputum growing citrobacter. 04/05: MRI c-spine demonstrates new increased cord edema at C5/6. some concern over increased signal within the posterior disk at C4/5 and c5/6 which could be concerning for discitis, or post-op changes. Also ligamentum flavum hypertrophy at that level causing significant canal stenosis. Almost certainly the cord edema is causing the neurogenic shock requiring intermittent atropine. Have discussed with neurosurgery, and awaiting final plan for operative or non- operative recommendations. Certainly additional cervical spine operations in this 82year old patient with chronic respiratory failure would be very high risk for poor outcomes. 04/06: additional episode of bradycardia requiring atropine today. also, more hypoxemia requiring suction lavage. afebrile. wbc normal. failing cpap trials: very frail, deconditioned. plan for posterior decompression early next week, then needs LTAC level care. 04/07: Remains on mechanical ventilation. 04/08: Remains on mechanical ventilation via tracheostomy. Daily CPAP trials. 04/09: Remains on mechanical ventilation via tracheostomy. Daily CPAP trials ongoing. 04/10: Afebrile. Continues to have copious thick secretions suctioned from tracheostomy site. Tolerating tube feeding at goal. Positive BM. Arousable and follows commands on the ventilator with upper extremities 04/11: Resting comfortably in bed in no acute distress. Switch to PC/AC ventilation due to inconsistent/low tidal volumes on PRVC/AC. Neurological exam unchanged. Tube feeds at goal. No bowel movement yesterday. Subjective 04/12: Opens eyes follows commands on upper extremity grossly no finding movements of the hands. Bilateral wheezing heard. Chest x-ray shows left lower lobe consolidation. Copious secretions. Check sputum culture repeat, start inhaled budesonide and give 1 dose of IV Solu-Medrol 50 mg 04/13: Somnolent but following some commands with UE, Sputum cx with GNR. Will attempt CPAP today. OR tomorrow, 04/14/18 for posterior cervical decompression. 04/14: Patient more awake today for his commands with upper extremities. Sputum culture growing Citrobacter and GNR. Plan for OR today for posterior cervical decompression. Became bradycardic hypoxic on CPAP trials yesterday 04/15: Went to OR 04/14/18 for total C5 laminectomy and partial C4 and C6 laminectomies. All for sedation but slightly more lethargic today. Not following commands on upper extremities but opens eyes and tracks 04/16: Patient is breathing more comfortably today tolerating CPAP. Follows commands still on the upper extremities. No episodes of bradycardia reported. KUB shows questionable ileus. Tolerating tube feeds, having bowel movements. 04/17: Patient is awake moving upper extremities. Abdomen is distended, but patient is tolerating tube feeds and having bowel movements. Will repeat KUB today 04/18: Neuro exam unchanged tolerating tube feeds having bowel movements. KUB yesterday shows nonspecific gas bowel pattern 04/19: Bradycardic yesterday night even without suctioning. Initial spinal cord injury was approximately a month ago. With suctioning intermittently gets symptomatic bradycardia. Will request cardiology evaluation. Atropine is at the bedside will add epinephrine to the bedside. Use atropine prior to suctioning, use lidocaine spray prior to suctioning 04/20: Heart rate remains in the low 50s. No symptomatic bradycardia overnight. Cardiology consult appreciated await 2D echo. For a intermittent wide-complex tachycardia Dr. Pedro has placed on low-dose beta blockers. However last week patient had symptomatic bradycardia in low 20s. I will discontinue beta- blockers at this time and closely watch, will discuss with cardiology Objective Vital Signs / I&O: Vital Signs 04/19/18 07:38 04/19/18 07:41 04/19/18 08:00 Temperature 98 F Pulse Rate 66 Respiratory Rate 23 24 20 Blood Pressure 147/86 H Pulse Oximetry 100 100 04/19/18 11:15 04/19/18 11:17 04/19/18 12:00 Temperature 98.2 F Pulse Rate 60 63 Respiratory Rate 17 17 Blood Pressure 146/71 H Pulse Oximetry 100 100 04/19/18 16:00 04/19/18 16:03 04/19/18 16:04 Temperature 98.7 F Pulse Rate 76 62 Respiratory Rate 16 19 19 Blood Pressure 128/77 Pulse Oximetry 100 95 04/19/18 19:46 04/19/18 20:00 04/20/18 00:00 Temperature 98.6 F 98.2 F Pulse Rate 72 62 64 Respiratory Rate 16 19 19 Blood Pressure 127/55 L 113/56 L Pulse Oximetry 96 04/20/18 00:44 04/20/18 03:39 04/20/18 04:00 Temperature 98.9 F Pulse Rate 67 55 L 64 Respiratory Rate 16 16 16 Blood Pressure 142/66 H Pulse Oximetry 100 100 Intake & Output 04/19/18 04/19/18 04/20/18 06:59 18:59 06:59 Intake Total 1382 / 1382 6770 / 6770 606 / 606 Output Total 1300 / 1300 1950 / 1950 750 / 750 Balance 82 / 82 4820 / 4820 -144 / -144 Intake: IV 100 / 100 Rocephin Inj 2,000 MG In NS Inj 100 / 100 100 ML @ 200 mls/hr IV.SIG Q24H [facility] Rx#:[id number] Tube Feeding 1322 / 1322 620 / 620 516 / 516 Tube Irrigant 60 / 60 6050 / 6050 90 / 90 Output: Urine 600 / 600 750 / 750 Stool 50 / 50 Urine Amount (Catheter) 1300 / 1300 1300 / 1300 Condom 1300 / 1300 1300 / 1300 Other: # Voids 1 Date of Last Bowel Movement 04/18/18 04/18/18 04/18/18 # Bowel Movements 1 1 1 Result Diagrams: 04/18/18 03:39 04/18/18 03:39 Objective Remarks: GENERAL: 82 yo AAM male, lying in bed eyes open, no distress SKIN: Warm and dry. No rash and well-perfused HEAD: Normocephalic. EYES: No scleral icterus. No injection or drainage. Pupils right 3 mm, left 2 mm. Reactive. NECK: Supple, tracheostomy with no signs of bleeding. Remains of cervical collar. CARDIOVASCULAR: RRR. S1, S2. No S4. No JVD. Intermittently bradycardic, currently HR 53/mt RESPIRATORY: Breath sounds equal bilaterally. Bilateral wheezes and coarse rhonchi. GASTROINTESTINAL: Abdomen soft, non-tender, nondistended. Hypoactive bowel sounds MUSCULOSKELETAL: No significant peripheral edema, warm and well-perfused limbs. Sacral DU NEURO EXAM: Pupils are equal, eyes are spontaneously open. following commands in UE. Spontaneously move bilateral upper extremities, has gross movements, no fine movements of the hand. Strength 3/5 upper extremities with right greater than left. strength 0/5 in lower extremities. Assessment and Plan - Assessment and Plan Plan: A/P Assessment and Plan Neuro/Psych: Quadriplegia, C5-C7 complete Contusion of cervical cord Cervical spinal stenosis Dementia disorder NOS EtOH s/p C4-5 and C5-6 anterior cervical discectomy, interbody fusion, allograft bone , partial C5 corpectomy, C4-6 anterior instrumentation 03/18/18 s/p total C5 laminectomy and partial C4 and C6 laminectomies. 04/14/18 Neurosurgery/Dr. Hood. Acetaminophen 650 mg by tube every 6 hours as needed fever Morphine sulfate as needed for pain management, Continue baclofen 10 mg every 8 hours Donepezil 5 mg p.o. daily for dementia-DC due to potential for bradycardia Vitamin bag daily 3 days thiamine, folate has been completed. thiamine 100 mg daily multivitamin daily and folic acid 1 mg daily by tube Monitor for DTs. Haloperidol 2.5 mg every 4 hours as needed agitation MRI brain 04/04 revealed mild microvascular ischemic type changes PT/OT CV: Essential hypertension Episodic bradycardia Cardiology consult for pacemaker evaluation, initial spinal cord injury approximately 1 month ago Atropine PRN, lidocaine spray use prior to suctioning and for bradycardia. Epinephrine atropine to the bedside For intermittent wide complex tachycardia cardiology (Dr. Pedro) recommended beta blockers, will avoid beta blockers to previous severe bradycardia to 20s with hypotension Became bradycardic 04/13 after becoming hypoxemic on CPAP. Currently heart rate in 50s Holding amlodipine 10 mg daily lisinopril 2.5 mg p.o. daily while maintain blood pressure goals as above and resume as clinically indicated Continue p.o. hydralazine and, IV hydralazine as needed Resp: Acute hypoxic and hypercarbic respiratory failure- now chronic. Daily SBT, with TP as tolerated. Need long-term vent weaning, but hold transfer pending cariology clearance, echo Atropine PRN, lidocaine spray use prior to suctioning and for bradycardia Has been treated with larger tidal volumes- 10-12cc/kilogram ideal body weight 67 kg. Ventilator bundle. PC/AC Specialist respiratory management with cervical spine injury with decreased lung expansion, impaired cough due to weakness of expiratory muscles, impairment of elastic recoil of diaphragms, increased secretion production due to unopposed parasympathetic stimulation stimulation and decreased surfactant production. Albuterol/ipratropium aerosols every 4 hours with albuterol aerosols every 2 hours as needed dyspnea Status post percutaneous tracheostomy 03/[address] Grey Continue budesonide Continues to have bilateral wheezing, will place on short course of steroids with prednisone 20 mg twice daily daily for 3 days GI: Hypoalbuminemia Hypernatremia Tube feeds goal 60 cc an hour per nutrition's recommendation Reglan 5 mg IV every 8 hours. Lansoprazole for GI prophylaxis Docusate sodium/senna 1 tablet twice daily for bowel regimen. Polyethylene glycol 17 g twice daily, lactulose 30 cc twice daily s/p PEG tube 04/05. Dr. Tom Endo: Sliding scale insulin with Accu-Cheks to maintain euglycemia/low regimen NovoLog every 6 hours Insulin detemir 16 units twice daily. No sliding scale insulin past 24 hours Renal: Mild rhabdomyolysis -resolved Monitor CPK/LFTs are downward straight cath i/o q6h for retention. Heme: Leukocytosis Normocytic anemia Monitor CBC daily. Follow trend ID: Klebsiella UTI Proteus UTI Haemophilus influenza/Citrobacter Koseri sputum HCAP with Citrobacter/Klebsiella Continue Rocephin, complete 7 days 04/12: Citrobacter/Klebsiella in sputum culture 04/08 -sputum -Klebsiella pneumonia/Citrobacter koseri 03/29 -sputum -Klebsiella pneumonia/Citrobacter 03/25 -urine -Klebsiella pneumonia/Proteus mirabilis 03/25 -sputum -Citrobacter koseri and Haemophilus influenza positive 03/25 -blood cultures 2 -no growth MSK: Sacrum DU PT evaluate and treat Wound care c/s FEN: Replace electrolytes per ICU electrolyte protocol Access PIV Prophylaxis GI -lansoprazole DVT -SCD/heparin subcu for DVT prophylaxis Level 3 LTAC transfer placed on hold pending cardiology clearance, 2D echo. Discussed Condition With: bedside RN
--- NOTE | 2018-04-20 08:20 | P.PNCA ---
Subjective Interval history: Denies SOB, CP, palpitations, dizziness. Physical Exam Vital signs: Vital Signs 04/19/18 11:15 04/19/18 11:17 04/19/18 12:00 Temperature 98.2 F Pulse Rate 60 63 Respiratory Rate 17 17 Blood Pressure 146/71 H Pulse Oximetry 100 100 04/19/18 16:00 04/19/18 16:03 04/19/18 16:04 Temperature 98.7 F Pulse Rate 76 62 Respiratory Rate 16 19 19 Blood Pressure 128/77 Pulse Oximetry 100 95 04/19/18 19:46 04/19/18 20:00 04/20/18 00:00 Temperature 98.6 F 98.2 F Pulse Rate 72 62 64 Respiratory Rate 16 19 19 Blood Pressure 127/55 L 113/56 L Pulse Oximetry 96 04/20/18 00:44 04/20/18 03:39 04/20/18 04:00 Temperature 98.9 F Pulse Rate 67 55 L 64 Respiratory Rate 16 16 16 Blood Pressure 142/66 H Pulse Oximetry 100 100 Intake & Output 04/19/18 04/20/18 04/20/18 18:59 06:59 18:59 Intake Total 6770 / 6770 606 / 606 Output Total 1950 / 1950 750 / 750 Balance 4820 / 4820 -144 / -144 Intake: IV 100 / 100 Rocephin Inj 2,000 MG In NS Inj 100 / 100 100 ML @ 200 mls/hr IV.SIG Q24H [facility] Rx#:[id number] Tube Feeding 620 / 620 516 / 516 Tube Irrigant 6050 / 6050 90 / 90 Output: Urine 600 / 600 750 / 750 Stool 50 / 50 Urine Amount (Catheter) 1300 / 1300 Condom 1300 / 1300 Other: # Voids 1 Date of Last Bowel Movement 04/18/18 04/18/18 # Bowel Movements 1 1 - Routine Respiratory Exam Comments: Lungs clear anteriorly - Routine Cardiovascular Exam Present: RRR. Absent: murmur, gallop, S3, S4 - Routine Abdominal Exam Present: soft, normoactive bowel sounds. Absent: tenderness, organomegaly - Routine Extremities Exam Absent: cyanosis, clubbing, edema - Urinary Catheter Management Condom Cath placed during this visit: no Assessment and Plan - Assessment (1) Bradycardia Code(s): R00.1 - Bradycardia, unspecified Status: Acute Plan: Stable overnight. No evidence for high degree AV block. Recommend continue to monitor closely. No further wide complex tachycardia. Metoprolol on hold for now. (2) Wide-complex tachycardia Code(s): I47.2 - Ventricular tachycardia Status: Acute Plan: Stable overnight. Echo pending. Will be difficult to treat tachyarrhythmias with underlying bradycardia which has been occasionally severe. Recommend await echo; if LV function normal would hold off treating wide complex tachycardia unless has sustained episodes. - Plan Code Status: full code Discussed Condition With: patient
[2018-04-20] MEDS: predniSONE 20 MG Tablet PO SCH ×3 (09:04→17:53)
[2018-04-20] MEDS: Folic Acid 1 MG Tablet PO SCH (09:04)
[2018-04-20] MEDS: Senna/Docusate Sodium 8.6/50 MG Tablet PO SCH ×2 (09:05→22:05)
[2018-04-20] MEDS: Polyethylene Glycol 3350 17 GM Packet NG/OG SCH ×2 (09:05→22:05)
[2018-04-20] MEDS: Chlorhexidine Gluconate 0.12% Liq 15 ML UDC SWISH-SPIT SCH ×2 (09:05→22:06)
[2018-04-20] MEDS: Insulin Detemir Inj 1,000 UNIT/10 ML Vial SQ SCH ×2 (09:41→22:07)
--- NOTE | 2018-04-20 12:25 | P.PNNS ---
Subjective Interval history: Pt with right biceps contracture. Limited movement left wrist. Otherwise no movement in extremities. [place] collar in place. Trach in place. On CPAP. Physical Exam Vital signs: Vital Signs 04/19/18 16:00 04/19/18 16:03 04/19/18 16:04 Temperature 98.7 F Pulse Rate 76 62 Respiratory Rate 16 19 19 Blood Pressure 128/77 Pulse Oximetry 100 95 04/19/18 19:46 04/19/18 20:00 04/20/18 00:00 Temperature 98.6 F 98.2 F Pulse Rate 72 62 64 Respiratory Rate 16 19 19 Blood Pressure 127/55 L 113/56 L Pulse Oximetry 96 04/20/18 00:44 04/20/18 03:39 04/20/18 04:00 Temperature 98.9 F Pulse Rate 67 55 L 64 Respiratory Rate 16 16 16 Blood Pressure 142/66 H Pulse Oximetry 100 100 04/20/18 08:00 04/20/18 09:20 Temperature 99.2 F Pulse Rate 60 Respiratory Rate 18 20 Blood Pressure 148/67 H Pulse Oximetry 100 100 Intake & Output 04/19/18 04/20/18 04/20/18 18:59 06:59 18:59 Intake Total 6770 / 6770 606 / 606 Output Total 1950 / 1950 750 / 750 Balance 4820 / 4820 -144 / -144 Intake: IV 100 / 100 Rocephin Inj 2,000 MG In NS Inj 100 / 100 100 ML @ 200 mls/hr IV.SIG Q24H [facility] Rx#:[id number] Tube Feeding 620 / 620 516 / 516 Tube Irrigant 6050 / 6050 90 / 90 Output: Urine 600 / 600 750 / 750 Stool 50 / 50 Urine Amount (Catheter) 1300 / 1300 Condom 1300 / 1300 Other: # Voids 1 Date of Last Bowel Movement 04/18/18 04/18/18 04/19/18 # Bowel Movements 1 1 - Constitutional mild distress, thin, cachectic, chronically ill appearing - Routine HEENT Exam Head: Present: normocephalic, atraumatic Eye: Present: PERRL. Absent: conjunctival icterus - Routine Neck Exam Present: trachea midline (trach in place.) - Routine Respiratory Exam Present: patient mechanically ventilated (Trach in place on CPAP.), rhonchi. Absent: respiratory distress, wheezes - Routine Cardiovascular Exam Present: RRR, S1, S2. Absent: murmur - Routine Abdominal Exam Present: soft, normoactive bowel sounds. Absent: tenderness, distended (TFs at 60ml/hr.) - Routine Extremities Exam Absent: cyanosis, edema - Routine Skin Exam Present: intact. Absent: cyanosis, erythema - Routine Neurological Exam Present: alert, motor deficit (Quadriplegia.). Absent: moving all extremities ( Quadriplegia.) - Routine Psychiatric Exam Present: unable to assess - Urinary Catheter Management Condom Cath placed during this visit: no Assessment and Plan - Assessment (1) Quadriplegia Code(s): G82.50 - Quadriplegia, unspecified Status: Acute - Plan Impression: 1. Status post 03/18/2018: C4-5 and C5-6 ACDF with partial C5 corpectomy 04/14/2018: T5 total and partial C4 and C6 laminectomies Persistent quadriplegia-unchanged postoperative. 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 2. Sacral decubitus ulcer Patient is stable, no change in neuro exam. Plan: Wound care nursing for decubitus ulcer management Patient stable for inpatient rehabilitation Primary & critical care management per [employer]. Neuro checks. Respiratory treatments Cervical collar He will need inpatient rehabilitation
--- NOTE | 2018-04-20 14:06 | ECHRPT ---
Indication: CONCLUSIONS Normal left ventricular size. Wall thickness is normal. The left ventricular systolic function is low normal with an estimated ejection fraction in the rang e of 50- 55%. Mitral annular calcification is present. [id number] mitral valve regurgitation. Aortic valve sclerosis is present. There is estimated moderate pulmonary hypertension present (56 mmHg). BP: / HR: Rhythm: MEASUREMENTS (Male / Female) Normal Values Technical Quality: 2D ECHO LV Diastolic Diameter PLAX 4.9 cm 4.2 - 5.9 / 3.9 - 5.3 cm LV Systolic Diameter PLAX 3.6 cm IVS Diastolic Thickness 0.8 cm 0.6 - 1.0 / 0.6 - 0.9 cm LVPW Diastolic Thickness 0.6 cm 0.6 - 1.0 / 0.6 - 0.9 cm LV Relative Wall Thickness 0.3 RV Internal Dim ED PLAX 1.6 cm M-MODE Aortic Root Diameter MM 2.7 cm AV Cusp Separation MM 1.8 cm DOPPLER MR Peak Velocity 528.0 cm/s MR Peak Gradient 111.5 mmHg Mitral E Point Velocity 114.0 cm/s Mitral A Point Velocity 105.0 cm/s Mitral E to A Ratio 1.1 TR Peak Velocity 320.0 cm/s TR Peak Gradient 41.0 mmHg Right Atrial Pressure 15.0 mmHg Pulmonary Artery Systolic Pressu 56.0 mmHg Right Ventricular Systolic Press 56.0 mmHg FINDINGS LEFT VENTRICLE Normal left ventricular size. Wall thickness is normal. The left ventricular systolic function is low normal with an estimated ejection fraction in the rang e of 50- 55%. RIGHT VENTRICLE Normal right ventricular size and systolic function. LEFT ATRIUM The left atrial size is normal. RIGHT ATRIUM The right atrial size is normal. ATRIAL SEPTUM Normal atrial septal thickness without atrial level shunting by limited color doppler interrogation. AORTA The aortic root and proximal ascending aorta are normal in size on limited imaging. MITRAL VALVE Mitral annular calcification is present. [id number] mitral valve regurgitation. AORTIC VALVE Aortic valve sclerosis is present. TRICUSPID VALVE There is estimated moderate pulmonary hypertension present (56 mmHg). PULMONARY VALVE No pulmonary valve regurgitation or stenosis. VESSELS The inferior vena cava is normal in size. PERICARDIUM No pericardial effusion. Nikole Mason MD, FACC (Electronically Signed) Final Date:20 April 2018 14:05
[2018-04-21] MEDS: Insulin NovoLOG Aspart Correctional Sugar Inj SQ SCH ×3 (00:46→13:07)
[2018-04-21 05:20] LABS: Hematocrit 30.8 % (39.0-51.0); Hemoglobin 9.6 gm/dL (13.0-17.0); Mean Corpuscular HGB Conc 31.2 % (32.0-36.0); Mean Corpuscular Hemoglobin 26.9 pg (27.0-34.0); Mean Corpuscular Volume 86.3 fL (80.0-100.0); Mean Platelet Volume 9.4 fL (7.0-11.0); Platelet Count 361 th/mm3 (150-450); Red Blood Count 3.57 mil/mm3 (4.50-5.90); Red Cell Distribution Width 17.3 % (11.6-17.2); White Blood Count 13.6 th/mm3 (4.0-11.0)
[2018-04-21 05:21] LABS: Albumin 1.6 g/dL (3.4-5.0); Anion Gap 14 meq/L (5-15); Aspartate Aminotransferase 127 U/L (15-37); Blood Urea Nitrogen 22 mg/dL (7-18); Calcium 8.4 mg/dL (8.5-10.1); Carbon Dioxide 17.9 meq/L (21.0-32.0); Chloride 113 meq/L (98-107); Glomerular Filtration Rate Greater Than 89 mL/min (>89); Glucose,Random 112 mg/dL (74-106); Potassium 3.6 meq/L (3.5-5.1); Sodium 145 meq/L (136-145)
[2018-04-21 05:22] LABS: Alanine Aminotransferase 158 U/L (12-78)
[2018-04-21 05:24] LABS: Alkaline Phosphatase 144 U/L (45-117); Total Protein 7.2 g/dL (6.4-8.2)
[2018-04-21] MEDS: Heparin - SQ 10,000 UNITS/ML Vial SQ SCH ×2 (06:29→13:06)
[2018-04-21] MEDS: Artificial Tears Opth Drops 15 ML Bottle EACH EYE SCH ×2 (06:30→13:08)
--- NOTE | 2018-04-21 08:32 | P.PNCA ---
Subjective Interval history: Denies CP, dyspnea, dizziness, palpitations. Physical Exam Vital signs: Vital Signs 04/20/18 09:20 04/20/18 12:00 04/20/18 12:39 Temperature 99.9 F H Pulse Rate 60 Respiratory Rate 20 16 16 Blood Pressure 107/81 Pulse Oximetry 100 100 100 04/20/18 14:00 04/20/18 16:00 04/20/18 17:17 Temperature 99.2 F Pulse Rate 59 L 64 Respiratory Rate 16 16 Blood Pressure 186/88 H Pulse Oximetry 100 100 04/20/18 18:00 04/20/18 20:00 04/20/18 20:10 Temperature 98.9 F Pulse Rate 70 66 72 Respiratory Rate 18 18 Blood Pressure 122/82 Pulse Oximetry 100 04/20/18 20:45 04/20/18 22:00 04/20/18 23:14 Temperature Pulse Rate 72 69 Respiratory Rate 17 16 Blood Pressure Pulse Oximetry 100 04/21/18 00:00 04/21/18 00:37 04/21/18 02:00 Temperature 99.0 F Pulse Rate 65 68 Respiratory Rate 16 18 Blood Pressure 104/66 Pulse Oximetry 100 04/21/18 03:02 04/21/18 04:00 04/21/18 04:22 Temperature 99.1 F Pulse Rate 69 67 Respiratory Rate 16 16 18 Blood Pressure 148/65 H Pulse Oximetry 100 100 04/21/18 06:00 Temperature Pulse Rate 65 Respiratory Rate Blood Pressure Pulse Oximetry Intake & Output 04/20/18 04/21/18 04/21/18 18:59 06:59 18:59 Intake Total 368 / 368 765 / 765 Output Total 1325 / 1325 1000 / 1000 Balance -957 / -957 -235 / -235 Intake: IV 100 / 100 Rocephin Inj 2,000 MG In NS Inj 100 / 100 100 ML @ 200 mls/hr IV.SIG Q24H ALDAIR Rx#:[id number] Tube Feeding 68 / 68 675 / 675 Tube Irrigant 200 / 200 90 / 90 Output: Urine Amount (Catheter) 1325 / 1325 1000 / 1000 Condom 1325 / 1325 1000 / 1000 Other: Date of Last Bowel Movement 04/20/18 # Bowel Movements 1 1 - Routine Neck Exam Absent: JVD - Routine Respiratory Exam Present: CTA bilaterally - Routine Cardiovascular Exam Present: RRR, S1, S2, bradycardia. Absent: murmur, gallop - Routine Abdominal Exam Present: soft, normoactive bowel sounds. Absent: organomegaly - Routine Extremities Exam Present: edema (2+). Absent: cyanosis, clubbing - Urinary Catheter Management Condom Cath placed during this visit: no Assessment and Plan - Assessment (1) Bradycardia Code(s): R00.1 - Bradycardia, unspecified Status: Acute Plan: Stable overnight. No evidence for high degree AV block. HR's mostly 50's to 60 's. Recommend continue to monitor closely. Will f/u periodically. (2) Wide-complex tachycardia Code(s): I47.2 - Ventricular tachycardia Status: Acute Plan: Overall stable overnight. One brief iliana wide complex tachycardia this morning. Will be difficult to treat tachyarrhythmias with underlying bradycardia which has been occasionally severe. Echo reportedly shows normal LV function. Recommend no therapy unless patient has sustained episodes of wide complex tachycardia. - Plan Code Status: full Discussed Condition With: patient
--- NOTE | 2018-04-21 09:11 | P.PNCC ---
Subjective Subjective Remarks/Hospital Course: 82-year-old male was reportedly found down on the side of the road with initial GCS 7. Per chart review he usually takes a walk every morning. He was brought to the emergency room as a trauma alert. No seizure activity reported. He was reportedly mumbling and difficult to understand on initial evaluation in the emergency room. He was noted to have no voluntary movement in the lower extremities. Initial systolic blood pressure in the 90-100 range. The patient presents with quadriplegia, absence motor function below C6 level. 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 The patient was taken urgently to the operating room for surgical decompression cervical cord and fusion by Dr. Hood. He has returned to SICU postprocedure sedated and intubated 03/19: Afebrile. Positive gag and cough with positive corneal reflex. NG tube not in place secondary to edema?. Currently on phenylephrine drip to maintain mean arterial pressure greater than 85. Change to norepinephrine due to cervical spinal cord injury. 03/20: Currently on norepinephrine drip at 2 mcg/min to maintain mean arterial pressure greater than 85. Sedated on propofol drip at 30 mg/kg/min. Tolerating tube feeding. Will get CT brain today due to right pupil larger than left but this was similar to yesterday. No bowel movement. 03/21: Placed on Tiarra hugger yesterday secondary to hypothermia. Currently normothermic. Tolerating tube feeds. Will initiate CPAP trials today 2 hours. Nods head and follows simple commands with upper extremities. Weak cough. Withdraws bilateral lower extremities. 03/22: failing cpap trials. remains on low-dose norepinephrine to maintain adequate cervical spinal perfusion pressure. 03/23: Afebrile. Low tidal volumes on PSV trials. Tolerating tube feeding by 1.5 at goal rate recommended by nutrition 60 cc an hour. Positive BM. 03/24: still failing PSV trials with low tidal volume. plan for trach tomorrow ( POD 7). continues on low-dose norepinephrine to maintain adequate spinal perfusion. 03/25: secretions are still an issue: today they appear purulent and much more copious than yesterday. also now spiking fevers. wbc increased significantly. high concern for infection, pulmonary source. plan for trach today. 03/26: s/p trach yesterday. both sputum and urine growing GNR. wbc still uptrending. 03/27: urine growing proteus and klebsiella. sputum still awaiting speciation. t- piece trials starting today. needs aggressive mobilization. 03/28: Afebrile currently. Coarse crackles are appreciated bilateral with a stable appearing chest x-ray. Off norepinephrine drip. Nods head appropriately to questions. Moving bilateral upper extremities.. Denies chest pain currently. 03/29: Afebrile. Coarse rhonchorous breath sounds bilaterally. Off all vasopressors. I did not take the course. Decreased tidal volumes noted current ventilator mode. Will recheck sputum today. 03/30: Continue to promote SBTs but volumes remain low. 03/31: Today he is tolerating 12/5 spontaneous breathing trials. Remains alert. 04/01: Remains ventilator dependent. Glucose intolerance will require twice daily Levemir dosing. Convert tube feedings to Glucerna. 04/02: Remains ventilator dependent and requiring elevated pressure support. Glucose intolerance persists will increase Levemir again and continue with Glucerna. 04/03: Remains ventilator dependent and not tolerating spontaneous breathing trials. Better control of hyperglycemia now with increased Levemir dosing twice daily. Will require 3-4 weeks for ventilator weaning. [facility] 04/04: episode of bradycardia yesterday associated with hypoxia: appeared to be junctional with rate of 30s. this morning, had additional episode of junctional bradycardia, rate in the 30s with associated hypotension, responding to atropine. MRI brain and c-spine ordered. afebrile. sputum growing citrobacter. 04/05: MRI c-spine demonstrates new increased cord edema at C5/6. some concern over increased signal within the posterior disk at C4/5 and c5/6 which could be concerning for discitis, or post-op changes. Also ligamentum flavum hypertrophy at that level causing significant canal stenosis. Almost certainly the cord edema is causing the neurogenic shock requiring intermittent atropine. Have discussed with neurosurgery, and awaiting final plan for operative or non- operative recommendations. Certainly additional cervical spine operations in this 82year old patient with chronic respiratory failure would be very high risk for poor outcomes. 04/06: additional episode of bradycardia requiring atropine today. also, more hypoxemia requiring suction lavage. afebrile. wbc normal. failing cpap trials: very frail, deconditioned. plan for posterior decompression early next week, then needs LTAC level care. 04/07: Remains on mechanical ventilation. 04/08: Remains on mechanical ventilation via tracheostomy. Daily CPAP trials. 04/09: Remains on mechanical ventilation via tracheostomy. Daily CPAP trials ongoing. 04/10: Afebrile. Continues to have copious thick secretions suctioned from tracheostomy site. Tolerating tube feeding at goal. Positive BM. Arousable and follows commands on the ventilator with upper extremities 04/11: Resting comfortably in bed in no acute distress. Switch to PC/AC ventilation due to inconsistent/low tidal volumes on PRVC/AC. Neurological exam unchanged. Tube feeds at goal. No bowel movement yesterday. 04/12: Opens eyes follows commands on upper extremity grossly no finding movements of the hands. Bilateral wheezing heard. Chest x-ray shows left lower lobe consolidation. Copious secretions. Check sputum culture repeat, start inhaled budesonide and give 1 dose of IV Solu-Medrol 50 mg 04/13: Somnolent but following some commands with UE, Sputum cx with GNR. Will attempt CPAP today. OR tomorrow, 04/14/18 for posterior cervical decompression. 04/14: Patient more awake today for his commands with upper extremities. Sputum culture growing Citrobacter and GNR. Plan for OR today for posterior cervical decompression. Became bradycardic hypoxic on CPAP trials yesterday 04/15: Went to OR 04/14/18 for total C5 laminectomy and partial C4 and C6 laminectomies. All for sedation but slightly more lethargic today. Not following commands on upper extremities but opens eyes and tracks 04/16: Patient is breathing more comfortably today tolerating CPAP. Follows commands still on the upper extremities. No episodes of bradycardia reported. KUB shows questionable ileus. Tolerating tube feeds, having bowel movements. 04/17: Patient is awake moving upper extremities. Abdomen is distended, but patient is tolerating tube feeds and having bowel movements. Will repeat KUB today 04/18: Neuro exam unchanged tolerating tube feeds having bowel movements. KUB yesterday shows nonspecific gas bowel pattern 04/19: Bradycardic yesterday night even without suctioning. Initial spinal cord injury was approximately a month ago. With suctioning intermittently gets symptomatic bradycardia. Will request cardiology evaluation. Atropine is at the bedside will add epinephrine to the bedside. Use atropine prior to suctioning, use lidocaine spray prior to suctioning 04/20: Heart rate remains in the low 50s. No symptomatic bradycardia overnight. Cardiology consult appreciated await 2D echo. For a intermittent wide-complex tachycardia Dr. Pedro has placed on low-dose beta blockers. However last week patient had symptomatic bradycardia in low 20s. I will discontinue beta- blockers at this time and closely watch, will discuss with cardiology SUBJECTIVE: 04/21: Afebrile. One episode of wide-complex tachycardia resolved quickly. No new issues. Tolerating tube feeding. Positive BM. Objective Vital Signs / I&O: Vital Signs 04/20/18 09:20 04/20/18 12:00 04/20/18 12:39 Temperature 99.9 F H Pulse Rate 60 Respiratory Rate 20 16 16 Blood Pressure 107/81 Pulse Oximetry 100 100 100 04/20/18 14:00 04/20/18 16:00 04/20/18 17:17 Temperature 99.2 F Pulse Rate 59 L 64 Respiratory Rate 16 16 Blood Pressure 186/88 H Pulse Oximetry 100 100 04/20/18 18:00 04/20/18 20:00 04/20/18 20:10 Temperature 98.9 F Pulse Rate 70 66 72 Respiratory Rate 18 18 Blood Pressure 122/82 Pulse Oximetry 100 04/20/18 20:45 04/20/18 22:00 04/20/18 23:14 Temperature Pulse Rate 72 69 Respiratory Rate 17 16 Blood Pressure Pulse Oximetry 100 04/21/18 00:00 04/21/18 00:37 04/21/18 02:00 Temperature 99.0 F Pulse Rate 65 68 Respiratory Rate 16 18 Blood Pressure 104/66 Pulse Oximetry 100 04/21/18 03:02 04/21/18 04:00 04/21/18 04:22 Temperature 99.1 F Pulse Rate 69 67 Respiratory Rate 16 16 18 Blood Pressure 148/65 H Pulse Oximetry 100 100 04/21/18 06:00 Temperature Pulse Rate 65 Respiratory Rate Blood Pressure Pulse Oximetry Intake & Output 04/20/18 04/21/18 04/21/18 18:59 06:59 18:59 Intake Total 368 / 368 765 / 765 Output Total 1325 / 1325 1000 / 1000 Balance -957 / -957 -235 / -235 Intake: IV 100 / 100 Rocephin Inj 2,000 MG In NS Inj 100 / 100 100 ML @ 200 mls/hr IV.SIG Q24H ALDAIR Rx#:[id number] Tube Feeding 68 / 68 675 / 675 Tube Irrigant 200 / 200 90 / 90 Output: Urine Amount (Catheter) 1325 / 1325 1000 / 1000 Condom 1325 / 1325 1000 / 1000 Other: Date of Last Bowel Movement 04/20/18 # Bowel Movements 1 1 Result Diagrams: 04/21/18 03:09 04/21/18 03:09 Imaging: ITS Impressions Abdomen X-Ray 04/17/18 00:00 CONCLUSION: Nonspecific gaseous distention of bowel Objective Remarks: GENERAL: 82 yo AAM male, lying in bed eyes open, no distress SKIN: Warm and dry. No rash and well-perfused HEAD: Normocephalic. EYES: No scleral icterus. No injection or drainage. Pupils right 3 mm, left 2 mm. Reactive. NECK: Supple, tracheostomy with no signs of bleeding. Remains in cervical collar. CARDIOVASCULAR: RRR. S1, S2. No S4. No murmur RESPIRATORY: Breath sounds equal bilaterally. Coarse rhonchorous breath sounds appreciated bilaterally. Positive end expiratory wheeze. GASTROINTESTINAL: Abdomen soft, non-tender, nondistended. Hypoactive bowel sounds MUSCULOSKELETAL: No significant peripheral edema, warm and well-perfused limbs. Sacral DU NEURO EXAM: Pupils are equal, eyes are spontaneously open. following commands in UE. Spontaneously move bilateral upper extremities, has gross movements, no fine movements of the hand. Strength 3/5 upper extremities with right greater than left. strength 0/5 in lower extremities. Assessment and Plan - Assessment and Plan Plan: A/P Assessment and Plan Neuro/Psych: Quadriplegia, C5-C7 complete Contusion of cervical cord Cervical spinal stenosis Dementia disorder NOS EtOH s/p C4-5 and C5-6 anterior cervical discectomy, interbody fusion, allograft bone , partial C5 corpectomy, C4-6 anterior instrumentation 03/18/18 s/p total C5 laminectomy and partial C4 and C6 laminectomies. 04/14/18 Neurosurgery/Dr. Hood. Acetaminophen 650 mg by tube every 6 hours as needed fever Morphine sulfate as needed for pain management, Continue baclofen 10 mg every 8 hours Donepezil 5 mg p.o. daily for dementia-DC due to potential for bradycardia Vitamin bag daily 3 days thiamine, folate has been completed. thiamine 100 mg daily multivitamin daily and folic acid 1 mg daily by tube MRI brain 04/04 revealed mild microvascular ischemic type changes PT/OT CV: Essential hypertension Episodic bradycardia Cardiology consult for pacemaker evaluation, initial spinal cord injury approximately 1 month ago Atropine PRN, lidocaine spray use prior to suctioning and for bradycardia. Epinephrine atropine to the bedside 2D Echo - Normal left ventricular size. Wall thickness is normal. The left ventricular systolic function is low normal with an estimated ejection fraction in the range of 50-55%. Mitral annular calcification is present. Mild-to- moderate mitral valve regurgitation. Aortic valve sclerosis is present. There is estimated moderate pulmonary hypertension present (56 mmHg). For intermittent wide complex tachycardia cardiology (Dr. Pedro) recommended beta blockers, will avoid beta blockers to previous severe bradycardia to 20s with hypotension Became bradycardic 04/13 after becoming hypoxemic on CPAP. Currently heart rate in 50s Holding amlodipine 10 mg daily lisinopril 2.5 mg p.o. daily while maintain blood pressure goals as above and resume as clinically indicated Continue p.o. hydralazine and, IV hydralazine as needed Resp: Acute hypoxic and hypercarbic respiratory failure- now chronic. PC/AC 16/inspiratory pressure 32/inspiratory time 0.9/PEEP of 5. FiO2 40% Daily SBT, with TP as tolerated. Need long-term vent weaning, but hold transfer pending cariology clearance Atropine PRN, benzocaine spray use prior to suctioning and for bradycardia Has been treated with larger tidal volumes- 10-12cc/kilogram ideal body weight 67 kg. Ventilator bundle. PC/AC Specialist respiratory management with cervical spine injury with decreased lung expansion, impaired cough due to weakness of expiratory muscles, impairment of elastic recoil of diaphragms, increased secretion production due to unopposed parasympathetic stimulation stimulation and decreased surfactant production. Albuterol/ipratropium aerosols every 4 hours with albuterol aerosols every 2 hours as needed dyspnea Status post percutaneous tracheostomy 03/[address] Grey Continue budesonide 0.5/2 1 inhalation twice daily Continues to have bilateral wheezing, will place on short course of steroids with prednisone 20 mg twice daily daily for 3 days. Stop date 7.6 GI: Hypoalbuminemia Elevated transaminases Tube feeds goal 60 cc an hour per nutrition's recommendation currently Glucerna 1.5 at 10 cc an hour Lansoprazole for GI prophylaxis Docusate sodium/senna 1 tablet twice daily for bowel regimen. Polyethylene glycol 17 g twice daily, lactulose 30 cc twice daily s/p PEG tube 04/05. Dr. Tom Endo: Sliding scale insulin with Accu-Cheks to maintain euglycemia/low regimen NovoLog every 6 hours Insulin detemir 16 units twice daily. Aspart sliding scale insulin Renal: Mild rhabdomyolysis -resolved Monitor CPK/LFTs are downward straight cath i/o q6h for retention. Heme: Leukocytosis Normocytic anemia Monitor CBC daily. Follow trend ID: Klebsiella UTI Proteus UTI Haemophilus influenza/Citrobacter Koseri sputum HCAP with Citrobacter/Klebsiella Continue ceftriaxone complete 7 days 04/12: Citrobacter/Klebsiella in sputum culture 04/08 -sputum -Klebsiella pneumonia/Citrobacter koseri 03/29 -sputum -Klebsiella pneumonia/Citrobacter 03/25 -urine -Klebsiella pneumonia/Proteus mirabilis 03/25 -sputum -Citrobacter koseri and Haemophilus influenza positive 03/25 -blood cultures 2 -no growth MSK: Sacrum DU PT evaluate and treat Wound care c/s FEN: Replace electrolytes per ICU electrolyte protocol Access PIV Prophylaxis GI -lansoprazole DVT -SCD/heparin subcu for DVT prophylaxis Level 2 LTAC transfer placed on hold pending cardiology clearance
[2018-04-21] MEDS: Chlorhexidine Gluconate 0.12% Liq 15 ML UDC SWISH-SPIT SCH (10:21)
[2018-04-21] MEDS: Polyethylene Glycol 3350 17 GM Packet NG/OG SCH (10:22)
[2018-04-21] MEDS: predniSONE 20 MG Tablet PO SCH ×2 (10:22→13:06)
[2018-04-21] MEDS: Folic Acid 1 MG Tablet PO SCH (10:22)
[2018-04-21] MEDS: Senna/Docusate Sodium 8.6/50 MG Tablet PO SCH (10:23)
[2018-04-21] MEDS: Insulin Detemir Inj 1,000 UNIT/10 ML Vial SQ SCH (10:24)
--- NOTE | 2018-04-21 10:28 | XR ---
EXAM DATE: 04/21/2018 10:18 AM EDT AGE/SEX: 82 years / Male INDICATIONS: Ileus. CLINICAL DATA: This is the patient's initial encounter. Patient reports that signs and symptoms have been present for 1 week and indicates a pain score of Nonresponsive. MEDICAL/SURGICAL HISTORY: Non-responsive. Non-responsive. COMPARISON: C, ABDOMEN 1V KUB, 04/17/2018. . FINDINGS: The abdominal bowel gas pattern is nonspecific with some gaseous distention of the small and large b owel. This is not significantly changed compared to the prior examination. No definite free air is se en. There is some stool in the colon. There is diffuse degenerative changes involving the bony struct ures. CONCLUSION: The bowel gas pattern is nonspecific with some gaseous distention of the small and large bowel. This could represent an ileus. Otherwise no significant changes are seen compared to the prior study.. Electronically signed by: Real Harrell MD 04/21/2018 10:27 AM EDT
--- NOTE | 2018-04-21 11:20 | P.PNNS ---
Addendum entered and electronically signed by SERGIO Schmid 04/21/18 17: 13: Additional discharge information: The patient is to keep his head on the donut pillow. Addendum entered and electronically signed by SERGIO Schmid 04/21/18 17: 11: Discharge information: Patient to have dotty removed to the posterior cervical incision on . The patient will need to have cervical spine AP & lateral view x-rays around to be reviewed by either Dr Hood or another Neurosurgeon. The cervical collar has been discontinued. Original Note: Subjective Interval history: 04/17: No new problems reported. Demand Generation Manager notes reviewed. 04/18: The patient has undergone anterior and posterior cervical spinal cord decompression. Remains with tracheostomy and PEG tube in place Cervical collar in place 04/19: The patient continues to be trached and is on CPAP/PSV setting on the vent. He has his eyes opened when seen. He does attempt to follow commands. 04/20: Pt with right biceps contracture. Limited movement left wrist. Otherwise no movement in extremities. [place] collar in place. Trach in place. On CPAP. 04/21: This morning the patient is asleep. He awakens to voice and followed commands with the upper extremities. He had no response to noxious stimulation with any of his extremities. He is trached and on CPAP/PSV settings. <Luis F Casiano - Last Filed: 04/21/18 11:25> Physical Exam Vital signs: Vital Signs 04/20/18 12:00 04/20/18 12:39 04/20/18 14:00 Temperature 99.9 F H Pulse Rate 60 59 L Respiratory Rate 16 16 Blood Pressure 107/81 Pulse Oximetry 100 100 04/20/18 16:00 04/20/18 17:17 04/20/18 18:00 Temperature 99.2 F Pulse Rate 64 70 Respiratory Rate 16 16 Blood Pressure 186/88 H Pulse Oximetry 100 100 04/20/18 20:00 04/20/18 20:10 04/20/18 20:45 Temperature 98.9 F Pulse Rate 66 72 Respiratory Rate 18 18 17 Blood Pressure 122/82 Pulse Oximetry 100 100 04/20/18 22:00 04/20/18 23:14 04/21/18 00:00 Temperature 99.0 F Pulse Rate 72 69 65 Respiratory Rate 16 16 Blood Pressure 104/66 Pulse Oximetry 04/21/18 00:37 04/21/18 02:00 04/21/18 03:02 Temperature Pulse Rate 68 69 Respiratory Rate 18 16 Blood Pressure Pulse Oximetry 100 04/21/18 04:00 04/21/18 04:22 04/21/18 06:00 Temperature 99.1 F Pulse Rate 67 65 Respiratory Rate 16 18 Blood Pressure 148/65 H Pulse Oximetry 100 100 04/21/18 09:32 Temperature Pulse Rate Respiratory Rate 16 Blood Pressure Pulse Oximetry 100 Intake & Output 04/20/18 04/21/18 04/21/18 18:59 06:59 18:59 Intake Total 368 / 368 765 / 765 Output Total 1325 / 1325 1000 / 1000 Balance -957 / -957 -235 / -235 Intake: IV 100 / 100 Rocephin Inj 2,000 MG In NS Inj 100 / 100 100 ML @ 200 mls/hr IV.SIG Q24H ALDAIR Rx#:[id number] Tube Feeding 68 / 68 675 / 675 Tube Irrigant 200 / 200 90 / 90 Output: Urine Amount (Catheter) 1325 / 1325 1000 / 1000 Condom 1325 / 1325 1000 / 1000 Other: Date of Last Bowel Movement 04/20/18 # Bowel Movements 1 1 Narrative: GENERAL: Asleep but awakens to voice. Trached and on CPAP/PSV settings. Interacts. No apparent distress. HEENT: Normocephalic, atraumatic. Left pupil 2 mm reactive, right fixed & dilated. NECK: In [place] J cervical collar. Trach to midline. No evident JVD. Anterior neck surgical incision well approximated, healing w/o complication. Dressing intact to posterior neck surgical incision w/o any shadowing noted. MUSCULOSKELETAL: Minimal movement of BUE, contractures to both, RUE very tight, able to move LUE slightly. No response w/BLE. No evident clubbing or deformity. NEURO: Asleep but awakens to voice. Nonverbal, trached. Followed simple commands. Minimal movement of BUE to command. Patient able to lift right elbow slightly off bed but unable to try to straight RUE, very contracted and practitioner unable to do passively. Practitioner is able to passively straighten the LUE which returns to contracted condition when released. No response to any extremity w/local noxious stimulation. - Urinary Catheter Management Condom Cath placed during this visit: no <Luis F Casiano E - Last Filed: 04/21/18 11:25> Vital signs: Vital Signs 04/20/18 20:00 04/20/18 20:10 04/20/18 20:45 Temperature 98.9 F Pulse Rate 66 72 Respiratory Rate 18 18 17 Blood Pressure 122/82 Pulse Oximetry 100 100 04/20/18 22:00 04/20/18 23:14 04/21/18 00:00 Temperature 99.0 F Pulse Rate 72 69 65 Respiratory Rate 16 16 Blood Pressure 104/66 Pulse Oximetry 04/21/18 00:37 04/21/18 02:00 04/21/18 03:02 Temperature Pulse Rate 68 69 Respiratory Rate 18 16 Blood Pressure Pulse Oximetry 100 04/21/18 04:00 04/21/18 04:22 04/21/18 06:00 Temperature 99.1 F Pulse Rate 67 65 Respiratory Rate 16 18 Blood Pressure 148/65 H Pulse Oximetry 100 100 04/21/18 08:00 04/21/18 09:32 04/21/18 10:00 Temperature 99.0 F Pulse Rate 63 67 Respiratory Rate 16 16 Blood Pressure 130/62 Pulse Oximetry 100 100 04/21/18 12:00 04/21/18 12:43 04/21/18 14:00 Temperature 98.8 F Pulse Rate 62 68 Respiratory Rate 19 21 Blood Pressure 117/56 L Pulse Oximetry 100 100 04/21/18 16:00 04/21/18 18:00 Temperature 99.0 F Pulse Rate 67 87 Respiratory Rate 19 Blood Pressure 158/75 H Pulse Oximetry 100 Intake & Output 04/21/18 04/21/18 04/22/18 06:59 18:59 06:59 Intake Total 765 / 765 1165 / 1165 Output Total 1000 / 1000 1800 / 1800 Balance -235 / -235 -635 / -635 Intake: Tube Feeding 675 / 675 675 / 675 Tube Irrigant 90 / 90 90 / 90 Water Bolus Amount 400 / 400 Output: Urine 750 / 750 Stool 50 / 50 Urine Amount (Catheter) 1000 / 1000 1000 / 1000 Condom 1000 / 1000 1000 / 1000 Other: # Voids 1 Date of Last Bowel Movement 04/20/18 # Bowel Movements 1 1 - Urinary Catheter Management Condom Cath placed during this visit: no <Sadi Hood - Last Filed: 04/21/18 19:09> Assessment and Plan - Assessment (1) Contusion of cervical cord Code(s): S14.109A - Unspecified injury at unspecified level of cervical spinal cord, initial encounter Status: Acute (2) Quadriplegia Code(s): G82.50 - Quadriplegia, unspecified Status: Acute - Plan Impression: 1. Status post 03/18/2018: C4-5 and C5-6 ACDF with partial C5 corpectomy 04/14/2018: T5 total and partial C4 and C6 laminectomies Persistent quadriplegia-unchanged postoperative. 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 2. Sacral decubitus ulcer Patient remains stable w/o change in his neuro exam. Plan: Wound care nursing for decubitus ulcer management Patient stable for inpatient rehabilitation Primary & critical care management per Demand Generation Manager. Neuro checks. Respiratory treatments Cervical collar He will need inpatient rehabilitation <Luis F Casiano - Last Filed: 04/21/18 11:25> - Assessment (1) Quadriplegia Code(s): G82.50 - Quadriplegia, unspecified Status: Acute - Plan The exam, history, and the medical decision-making described in the above note were completed with the assistance of the mid-level provider. I reviewed and agree with the findings presented. I attest that I had a [id number] encounter with the patient on the same day, and personally performed and documented my assessment and findings in the medical record. The patient remains awake and alert. Posterior neck incision is dry and intact The cervical brace is not fitting well. It will be removed. He is going to rehab today. He will need neck dotty removed in the next 7-10 days. Follow-up cervical spine x-ray in approximately 6 weeks. <Sadi Hood - Last Filed: 04/21/18 19:09>
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
== END 2018-04-21 08:20 ==
LOC: N03 03-18 10:26
PROVIDERS: ADMIT Internal Medicine Critical Care Medicine; ATTEND Internal Medicine Critical Care Medicine